=== PATIENT | male | born 1960 | race American Indian/Alaskan Native ===

== ENCOUNTER 2016-07-05 19:18 | Emergency (ER) | payer OTHER ==
[2016-07-05] MEDS ORDERED: Ketorolac 30 MG/ML SDV IVPUSH ONE (19:52)
[2016-07-05] MEDS: Sodium Chloride 0.9% 1,000 ML IV ONE ×2 (20:00→20:34)
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
[2016-07-05] MEDS ORDERED: Morphine 2 MG/ML Syringe IVPUSH ONE (20:29)
[2016-07-05] MEDS ORDERED: Ondansetron 4 MG/2 ML SDV IV ONE (20:29)
[2016-07-05] MEDS ORDERED: Sodium Chloride 0.9% 1,000 ML IV ONE ×2 (20:31)
[2016-07-05 20:47] LABS: CHLORIDE,CL 96 mmol/L (101-111); SODIUM,NA 131 mmol/L (135-145)
[2016-07-05] MEDS ORDERED: Acetaminophen 325 MG Tab PO ONE (21:07)
[2016-07-05 21:13] VITALS: BP 115/60
== END 2016-07-05 21:33 | disposition home or self-care (01) ==
LOC: DL.ED 19:18
DX: J11.1 Influenza due to unidentified influenza virus with other respiratory manifestations (principal); E03.9 Hypothyroidism, unspecified; I10 Essential (primary) hypertension; Z87.891 Personal history of nicotine dependence; Z88.5 Allergy status to narcotic agent; Z79.899 Other long term (current) drug therapy
CPT/HCPCS: 36415; 80053; 83605; 85025; 87040; 87081; 87430; 87804; 96374; 96375; 99284; A9270; J1885; J2270; J2405; J7030; 87077; 87186

== ENCOUNTER 2017-04-21 02:48 | Emergency (ER) | payer OTHER ==
[2017-04-21 03:29] VITALS: BP 164/82
[2017-04-21 03:33] LABS: CHLORIDE,CL 102 mmol/L (101-111); SODIUM,NA 138 mmol/L (135-145)
[2017-04-21] MEDS ORDERED: Iopamidol 612 MG/ML 100 ML Bottle IVPUSH ONE (03:43)
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
[2017-04-21] MEDS ORDERED: HYDROmorphone 1 MG/ML Syringe IVPUSH ONE (04:49)
[2017-04-21] MEDS ORDERED: Ondansetron 4 MG/2 ML SDV IV ONE (04:50)
== END 2017-04-21 05:10 ==
LOC: DL.ED 02:48
DX: K35.3 Acute appendicitis with localized peritonitis (principal); K81.0 Acute cholecystitis; F17.210 Nicotine dependence, cigarettes, uncomplicated; E03.9 Hypothyroidism, unspecified; Z79.899 Other long term (current) drug therapy; Z88.5 Allergy status to narcotic agent
CPT/HCPCS: 36415; 74177; 80053; 80305; 81001; 82150; 83690; 85025; 96374; 96375; 99285; J1170; J2405; Q9967

== ENCOUNTER 2017-04-28 04:38 | Inpatient (IN) | payer OTHER ==
[2017-04-28] MEDS ORDERED: Morphine 4 MG/ML Syringe IVPUSH ONE (05:05)
[2017-04-28] MEDS ORDERED: Ondansetron 4 MG/2 ML SDV IV ONE ×2 (05:05→05:52)
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
[2017-04-28] MEDS ORDERED: HYDROmorphone 1 MG/ML Syringe IVPUSH ONE (05:43)
[2017-04-28] MEDS ORDERED: Iopamidol 612 MG/ML 100 ML Bottle IVPUSH ONE (05:45)
[2017-04-28 05:49] LABS: ANION GAP 13.7; CHLORIDE,CL 95 mmol/L (101-111); SODIUM,NA 130 mmol/L (135-145)
[2017-04-28] MEDS ORDERED: ceFAZolin 1 GM in Premix Bag 1 BAG IV ONE (07:58)
[2017-04-28] MEDS: Sodium Chloride 0.9% 1,000 ML IV SCH ×2 (09:29→16:09)
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
[2017-04-28] MEDS ORDERED: Ondansetron 4 MG/2 ML SDV IV PRN (13:14)
--- NOTE | 2017-04-28 13:42 | OR ---
DATE: 04/28/2017 PREOPERATIVE DIAGNOSIS: Acute cholecystitis. POSTOPERATIVE DIAGNOSES: Acute cholecystitis with stones. PROCEDURE: Laparoscopic cholecystectomy. ANESTHESIA: General. ESTIMATED BLOOD LOSS: 100 mL. SPECIMEN: Gallbladder and stones. OPERATIVE FINDINGS: Markedly distended gallbladder that required drainage to be able to grasp it, moderately thick walled, and slight macronodular cirrhosis of the liver. Otherwise, no abnormalities. INDICATION FOR PROCEDURE: This is a 56-year-old male, presented to the emergency room with at least a week long history of right upper quadrant abdominal pain and postprandial vomiting no matter what he eats. CT scan shows a markedly dilated gallbladder with thick wall. PROCEDURE IN DETAIL: After adequate preparation, the trocars were placed at alternative sites secondary to his prior laparoscopic appendectomy last week. I was able to manipulate the trocars however in a good position to adequately do the cholecystectomy. The gallbladder was surrounded by omentum which required cautery excision to remove the omentum from the gallbladder. An opening in the top of the gallbladder was made and the suction device was used to suction out the bile within the gallbladder and this contained moderately thick black bile. The cystic triangle structures were identified as the gallbladder Jeffry's pouch was lifted off away from the liver. The gallbladder was taken off the liver about a quarter of the way up to the fundus, this definitely identified the cystic duct which was quite thick. Initially, I put clips on the duct and was going to transect it, however, the clips were barely across the cystic duct and with the amount of edema, I thought they possibly would come off, therefore, I took the clips often used the stapling device to transect the cystic duct and the artery that had been clipped prior. The gallbladder was then taken off the liver bed using blunt sharp and Bovie dissection. Hemostasis was controlled. The gallbladder was placed within a specimen retrieval bag and brought out through the epigastric trocar site. The right upper quadrant was cleared with saline and suctioned completely clear. No other intraabdominal abnormalities were noted. The trocars were removed, abdomen desufflated, and the skin closed with Vicryl. [facility] /[id number]
[2017-04-28] MEDS: fentaNYL 100 MCG/2 ML SDV IVPUSH ONE ×2 (14:22→14:32)
[2017-04-28] MEDS: Morphine 2 MG/ML Syringe IVPUSH PRN ×3 (15:34→23:21)
[2017-04-28] MEDS: Acetaminophen/oxyCODONE 325-5 MG Tab PO PRN ×2 (17:36→23:04)
[2017-04-28] MEDS: Sodium Chloride 0.9% 10 ML Syringe FLUSH PRN ×3 (23:21→23:30)
[2017-04-28] MEDS: Calcium Carbonate 500 MG Tab.Chew PO PRN (23:46)
[2017-04-29] MEDS: Acetaminophen/oxyCODONE 325-5 MG Tab PO PRN ×5 (03:08→20:58)
[2017-04-29] MEDS: Sodium Chloride 0.9% 10 ML Syringe FLUSH PRN ×3 (05:37→09:02)
[2017-04-29] MEDS: Morphine 2 MG/ML Syringe IVPUSH PRN ×4 (05:38→18:41)
[2017-04-29] MEDS: Levothyroxine 75 MCG Tab PO SCH (05:46)
--- NOTE | 2017-04-29 08:49 | PCM.SN ---
- Free Text/Narrative Note: VSS but has poor PO intake and pain not controlled unless IV morphine supplemented. Wounds OK. Abdomen distended. Will need to keep in observation today and see if ready to DC tomorrow.
[2017-04-29] MEDS ORDERED: Metoclopramide 10 MG/2 ML SDV IV ONE (09:19)
[2017-04-29] MEDS ORDERED: Rocuronium 50 MG/5 ML Vial IV ONE (09:19)
[2017-04-29] MEDS ORDERED: Ondansetron 4 MG/2 ML SDV IV ONE (09:19)
[2017-04-29] MEDS ORDERED: Glycopyrrolate 0.2 MG/ML 2 ML SDV IV ONE (09:19)
[2017-04-29] MEDS ORDERED: Neostigmine Methylsulfate 10 MG/10 ML MDV IV ONE (09:19)
[2017-04-29] MEDS ORDERED: Dexamethasone 4 MG/ML SDV IV ONE (09:19)
[2017-04-29] MEDS ORDERED: Propofol 200 MG/20 ML SDV IV ONE (09:19)
[2017-04-29] MEDS ORDERED: Ketorolac 30 MG/ML SDV IVPUSH ONE (09:19)
[2017-04-29] MEDS ORDERED: Midazolam 1 MG/ML 2 ML SDV IV ONE (09:19)
[2017-04-29] MEDS ORDERED: fentaNYL 100 MCG/2 ML SDV IV ONE (09:19)
[2017-04-29] MEDS ORDERED: Magnesium Hydroxide 400 MG/5 ML Susp 30 ML Cup PO ONE (19:40)
[2017-04-30] MEDS: Acetaminophen/oxyCODONE 325-5 MG Tab PO PRN ×3 (00:56→21:14)
[2017-04-30] MEDS: Levothyroxine 75 MCG Tab PO SCH (05:16)
--- NOTE | 2017-04-30 08:11 | PCM.SN ---
- Free Text/Narrative Note: Patient still C/O moderate abdominal pain radiating to right chest. No N&V, no bowel function. WBC last night was 10K with slightly low HgB. Abdomen not distended, wounds clean. Pain on palpation. States that he cannot eat anything without burning and pain. Will do EGD today and poss FU CT scan.
[2017-04-30] MEDS ORDERED: Midazolam 1 MG/ML 2 ML SDV ONE (08:15)
[2017-04-30] MEDS ORDERED: Benzocaine 20% Oral Spray 59.2 ML Canister ONE (08:37)
[2017-04-30] MEDS ORDERED: Midazolam 1 MG/ML 2 ML SDV IV ONE ×3 (08:38→16:25)
[2017-04-30] MEDS ORDERED: Benzocaine 20% Oral Spray 59.2 ML Canister MUCMEM ONE (08:39)
[2017-04-30] MEDS ORDERED: Dextrose 5%-0.45% NaCl 1,000 ML IV SCH (08:45)
--- NOTE | 2017-04-30 10:29 | OR ---
DATE: 04/30/2017 PREOPERATIVE DIAGNOSIS: Epigastric abdominal pain. POSTOPERATIVE DIAGNOSIS: Epigastric abdominal pain. PROCEDURE: EGD. ANESTHESIA: Conscious sedation with IV Versed. SPECIMEN: None. OPERATIVE FINDINGS: Small hiatal hernia and minimal gastritis, otherwise, negative for ulcer or stricture. INDICATION FOR PROCEDURE: This 56-year-old male is 3 days post laparoscopic cholecystectomy. He has pain on eating, it is reminiscent of possible ulcer disease or gastritis. PROCEDURE IN DETAIL: After adequate preparation, a gastroscope was inserted into the esophagus. This was passed down to the distal esophagus. He shows a small hiatal hernia of no consequence. A photograph of this was taken. The scope was advanced into the stomach. Both forward and retroflexed views were done and only show very minimal gastritis and patchy places, nothing significant, and no ulcerations. The scope was advanced through the pylorus and the first, second, and third part of the duodenal were all normal. Air was suctioned from the stomach and the scope was removed. [facility] /[id number]
[2017-04-30 10:33] LABS: ANION GAP 9.9; CHLORIDE,CL 97 mmol/L (101-111); SODIUM,NA 131 mmol/L (135-145)
--- NOTE | 2017-04-30 12:15 | PCM.SN ---
- Free Text/Narrative Note: CT scan shows collection of fluid around the liver and a second central collection. I think the bartolo-hepatic fluid is reactive and the central portion is hematoma. Could be bile or enterotomy leak but low chance. Fluid is leaking out of right sided trocar into the subq space and this is probably what the patient complains of most. Discussed the risks and benefits with the patient regarding my recommendation to re-operate for irrigation of this fluid. Will proceed to OR today.
[2017-04-30] MEDS: ceFAZolin 2 GM in Premix Bag 1 BAG IV SCH ×2 (13:11→21:15)
[2017-04-30] MEDS ORDERED: Morphine 2 MG/ML Syringe IVPUSH PRN (15:34)
[2017-04-30] MEDS ORDERED: fentaNYL 100 MCG/2 ML SDV IV ONE (16:25)
[2017-04-30] MEDS ORDERED: Neostigmine Methylsulfate 10 MG/10 ML MDV IV ONE (16:25)
[2017-04-30] MEDS ORDERED: Glycopyrrolate 0.2 MG/ML 2 ML SDV IV ONE (16:25)
[2017-04-30] MEDS ORDERED: Ondansetron 4 MG/2 ML SDV IV ONE (16:25)
[2017-04-30] MEDS ORDERED: Dexamethasone 4 MG/ML SDV IV ONE (16:25)
[2017-04-30] MEDS ORDERED: Lactated Ringers 1,000 ML IV ONE (16:25)
[2017-04-30] MEDS ORDERED: Rocuronium 50 MG/5 ML Vial IV ONE (16:25)
[2017-04-30] MEDS ORDERED: Propofol 200 MG/20 ML SDV IV ONE (16:25)
[2017-04-30] MEDS ORDERED: Ketorolac 30 MG/ML SDV IVPUSH ONE (16:25)
[2017-04-30] MEDS: Sodium Chloride 0.9% 10 ML Syringe FLUSH PRN (21:15)
[2017-04-30] MEDS: Calcium Carbonate 500 MG Tab.Chew PO PRN (21:26)
--- NOTE | 2017-04-30 23:51 | OR ---
DATE: 04/30/2017 PREOPERATIVE DIAGNOSIS: Intraabdominal hematoma, status post laparoscopic cholecystectomy. POSTOPERATIVE DIAGNOSIS: Intraabdominal hematoma, status post laparoscopic cholecystectomy. PROCEDURE: Diagnostic laparoscopy with evacuation of intraabdominal hemoperitoneum. ANESTHESIA: General. ESTIMATED BLOOD LOSS: None from the procedure. SPECIMEN: None but evacuation of fluid (900 mL, some of this is actual blood clot, the other is surrounding fluid and reactive fluid). INDICATION FOR PROCEDURE: This 56-year-old male had a laparoscopic cholecystectomy 3 days ago and had at that time acute gallbladder with marked edema. He has a very difficult cholecystectomy and postoperatively seemed to be doing well but staggered along. He had a CT scan finally that showed hemoperitoneum. PROCEDURE IN DETAIL: After adequate preparation, trocars were placed through the prior trocar sites. Examination of the abdomen did show some blood up around the liver correlating to what was seen on CAT scan. This fluid was suctioned clear. He did have some regular clot formation in the hepatic bed and down into Morison's pouch. This was all irrigated, I would estimate is 50% blood and 50% peritoneal fluid and reactive fluid. In any event, this was irrigated with 6 L of saline and suctioned clear. No other abdominal abnormalities were noted. The trocars were removed and the skin was closed with Vicryl. [facility] /[id number]
[2017-05-01] MEDS: Acetaminophen/oxyCODONE 325-5 MG Tab PO PRN ×2 (02:50→10:17)
[2017-05-01] MEDS: Levothyroxine 75 MCG Tab PO SCH (05:04)
[2017-05-01] MEDS: ceFAZolin 2 GM in Premix Bag 1 BAG IV SCH (05:05)
[2017-05-01] MEDS: Sodium Chloride 0.9% 10 ML Syringe FLUSH PRN (05:05)
[2017-05-01] MEDS: Calcium Carbonate 500 MG Tab.Chew PO PRN (05:05)
--- NOTE | 2017-05-01 08:10 | PCM.SN ---
- Free Text/Narrative Note: Feel better today. Much less pain and patient is more alert. Abdomen softer. Bruising on left side is secondary to the intra-abdominal bleeding seeping through the right sided trocar sites and collecting in the subq space. No treatment for this needed. Some PO last night without nausea. Not quite ready for discharge today but should be by tomorrow. Tentative discharge dictated and will have Dr. Mason observe for today. FU in my clinic week of May 31 if needed.
[2017-05-01 09:54] VITALS: BP 123/62
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
--- NOTE | 2017-05-03 07:44 | DISCH ---
ADDENDUM: INTRODUCTION: I had initially dictated a tentative discharge for Sharad Mcmahan with an admit of 04/28 and a discharge date of 05/02; however, this patient has decided he is ready for discharge today on the , and so the original discharge date should be 05/01 instead of tentative 05/02. [facility] /[id number]
== END 2017-05-01 10:30 | disposition home or self-care (01) | DRG 417 ==
LOC: DL.SDS 04:38 → DL.MS 13:10 → UNDOFXSDCSVC 04-29 09:18 → DL.SDS 04-29 09:18 → OBSVTOIN 04-30 15:32
PROVIDERS: ADMIT Surgery; ATTEND Surgery
PROC: 0FT44ZZ Resection of Gallbladder, Percutaneous Endoscopic Approach (ICD-10-PCS; principal; 2017-04-28)
PROC: 0DJ08ZZ Inspection of Upper Intestinal Tract, Via Natural or Artificial Opening Endoscopic (ICD-10-PCS; 2017-04-30)
PROC: 0F904ZZ Drainage of Liver, Percutaneous Endoscopic Approach (ICD-10-PCS; 2017-04-30)
DX: K80.00 Calculus of gallbladder with acute cholecystitis without obstruction (principal); K66.1 Hemoperitoneum; K29.70 Gastritis, unspecified, without bleeding; K44.9 Diaphragmatic hernia without obstruction or gangrene; E03.9 Hypothyroidism, unspecified; F17.210 Nicotine dependence, cigarettes, uncomplicated; H54.7 Unspecified visual loss; Z88.8 Allergy status to other drugs, medicaments and biological substances; Z79.899 Other long term (current) drug therapy
CPT/HCPCS: 36415; 74176; 74177; 80048; 80053; 82150; 83690; 85025; 96365; 96374; 96375; 96376; 99285; A9270-GY; G0378; J0690; J1100; J1170; J1885; J2250; J2270; J2405; J2704; J2710; J2765; J3010; J3490; J7030; J7050; J7120; Q9967

== ENCOUNTER 2017-05-03 18:20 | Emergency (ER) | payer OTHER ==
--- NOTE | 2017-05-03 19:01 | EDM.PDOC ---
ED HPI GENERAL MEDICAL PROBLEM - General Chief Complaint: Wound Recheck Stated Complaint: POST SURG, INCISION BLEEDING Time Seen by Provider: 05/03/17 18:57 Source of Information: Reports: Patient History Limitations: Reports: No Limitations - History of Present Illness INITIAL COMMENTS - FREE TEXT/NARRATIVE: states s/p abd surgery last then yesterday area turned [id number]-soci and painful, appetite denies N/V but c/o diarrhoea. Right Lower Abdomen Pain Score (Numeric/FACES): 6 - Related Data Allergies Allergy/AdvReac Type Severity Reaction Status Date / Time codeine Allergy Nausea Verified 05/03/17 18:30 Home Meds: Home Meds Acetaminophen 1,000 mg PO Q8H PRN 11/01/15 [History] Levothyroxine Sodium [Synthroid] 75 mcg PO DAILY 11/01/15 [History] Multivitamin [Multi-Day Vitamins] 1 tab PO DAILY 11/01/15 [History] oxyCODONE 5 mg PO Q8H PRN 04/28/17 [History] Past Medical History HEENT History: Reports: Impaired Vision Cardiovascular History: Reports: None Other Cardiovascular History: PATIENT DENIES HTN Respiratory History: Reports: None Gastrointestinal History: Reports: None Genitourinary History: Reports: None Musculoskeletal History: Reports: Fracture Other Musculoskeletal History: left arm Neurological History: Reports: None Psychiatric History: Reports: None Endocrine/Metabolic History: Reports: Hypothyroidism Hematologic History: Reports: None Immunologic History: Reports: None Oncologic (Cancer) History: Reports: Other (See Below) Other Oncologic History: THROAT Dermatologic History: Reports: Other (See Below) Other Dermatologic History: HX OF ABCESS TO BACK - Past Surgical History Head Surgeries/Procedures: Reports: Other (See Below) Respiratory Surgical History: Reports: None GI Surgical History: Reports: Appendectomy, Cholecystectomy, EGD Male Surgical History: Reports: None Endocrine Surgical History: Reports: None Neurological Surgical History: Reports: None Musculoskeletal Surgical History: Reports: Other (See Below) Other Musculoskeletal Surgeries/Procedures:: left arm surgery nigel in upper arm Oncologic Surgical History: Reports: Other (See Below) Social & Family History - Family History Family Medical History: Noncontributory - Tobacco Use Smoking Status *Q: Current Every Day Smoker Years of Tobacco use: 40 Packs/Tins Daily: 1 Used Tobacco, but Quit: No Month Tobacco Last Used: 03/2015 Second Hand Smoke Exposure: Yes - Caffeine Use Caffeine Use: Reports: Coffee - Recreational Drug Use Recreational Drug Use: No Drug Use in Last 12 Months: No ED ROS GENERAL - Review of Systems Review Of Systems: ROS reveals no pertinent complaints other than HPI. ED EXAM, SKIN/RASH Exam: See Below Exam Limited By: No Limitations General Appearance: Alert, WD/WN, Mild Distress, Other (discomfort) Ears: Hearing Grossly Normal Throat/Mouth: Normal Voice, No Airway Compromise Head: Atraumatic Neck: Non-Tender, Full Range of Motion Respiratory/Chest: No Respiratory Distress Cardiovascular: Regular Rate, Rhythm GI/Abdominal: Normal Bowel Sounds, Guarding, Tender, Other (tender over incision area with discolouration). No: Rigid, Rebound Neurological: Alert, Oriented, Normal Cognition, Normal Gait, No Motor/Sensory Deficits Psychiatric: Flat Affect Skin: Warm, Dry, Normal Color Location, Skin: Abdomen Associated features: Tenderness Lymphatic: No Adenopathy Course - Vital Signs Last Recorded V/S: Last Vital Signs Temp 36.8 C 05/03/17 20:35 Pulse 72 05/03/17 20:35 Resp 18 05/03/17 20:35 BP 122/71 05/03/17 20:35 Pulse Ox 98 05/03/17 20:35 - Orders/Labs/Meds Orders: Active Orders 24 hr Category Date Time Status CULTURE BLOOD [BC] Stat Lab 05/03/17 19:04 Received Labs: Laboratory Tests 05/03/17 05/03/17 05/03/17 Range/Units 19:04 19:04 19:04 WBC 8.5 (5.0-10.0) 10^3/uL RBC 3.44 L (4.6-6.2) 10^6/uL Hgb 11.0 L (14.0-18.0) g/dL Hct 31.9 L (40.0-54.0) % MCV 92.7 (80-100) fL MCH 32.0 (27.0-34.0) pg MCHC 34.5 (33.0-35.0) g/dL Plt Count 248 (150-450) 10^3/uL Neut % (Auto) 80.3 H (42.2-75.2) % Lymph % (Auto) 6.7 L (20.5-50.1) % [place] % (Auto) 9.7 H (2-8) % Eos % (Auto) 2.9 (1.0-3.0) % Baso % (Auto) 0.4 (0.0-1.0) % Sodium 129 L (135-145) mmol/L Potassium 3.9 (3.6-5.0) mmol/L Chloride 91 L (101-111) mmol/L Carbon Dioxide 31.0 (21.0-31.0) mmol/L Anion Gap 10.9 BUN 14 (7-18) mg/dL Creatinine 0.7 (0.6-1.3) mg/dL Est Cr Clr Drug Dosing 129.33 mL/min Estimated GFR (MDRD) > 60 BUN/Creatinine Ratio 20.00 Glucose 116 H (74-105) mg/dL Lactic Acid 0.8 (0.5-2.2) mmol/L Calcium 8.5 (8.4-10.2) mg/dl Total Bilirubin 3.7 H (0.2-1.0) mg/dL AST 36 (10-42) IU/L ALT 52 (10-60) IU/L Alkaline Phosphatase 135 H (42-121) IU/L Total Protein 6.2 L (6.7-8.2) g/dl Albumin 3.0 L (3.2-5.5) g/dl Globulin 3.2 Albumin/Globulin Ratio 0.94 Meds: Medications Discontinued Medications Generic Name Dose Route Start Last Admin Trade Name Freq PRN Reason Stop Dose Admin Sodium Chloride 1,000 mls @ 500 mls/hr 05/03/17 19:23 05/03/17 19:52 Normal Saline IV 05/03/17 21:22 500 mls/hr .BOLUS ONE Administration Iopamidol 100 ml 05/03/17 19:44 05/03/17 20:18 Isovue-300 (61%) IVPUSH 05/03/17 19:45 100 ml ONETIME ONE Administration - Re-Assessments/Exams Free Text/Narrative Re-Assessment/Exam: 05/03/17 21:[address] Do @ who kindly accepted pt. Departure - Departure Time of Disposition: 21:28 Disposition: DC/Tfer to Acute Hospital 02 Condition: Good Clinical Impression: Postoperative abdominal pain - Discharge Information Forms: Interfacility Transfer EMTALA - My Orders Last 24 Hours: My Active Orders 05/03/17 19:04 CULTURE BLOOD [BC] Stat - Assessment/Plan Last 24 Hours: My Active Orders 05/03/17 19:04 CULTURE BLOOD [BC] Stat
[2017-05-03] MEDS ORDERED: Sodium Chloride 0.9% 1,000 ML IV ONE (19:23)
[2017-05-03 19:31] LABS: CHLORIDE,CL 91 mmol/L (101-111); SODIUM,NA 129 mmol/L (135-145)
[2017-05-03] MEDS ORDERED: Iopamidol 612 MG/ML 100 ML Bottle IVPUSH ONE (19:44)
[2017-05-03 21:35] VITALS: BP 109/66
== END 2017-05-03 21:48 ==
LOC: DL.ED 18:20
DX: G89.18 Other acute postprocedural pain (principal); R10.31 Right lower quadrant pain; E03.9 Hypothyroidism, unspecified; F17.210 Nicotine dependence, cigarettes, uncomplicated; Z79.899 Other long term (current) drug therapy; Z88.5 Allergy status to narcotic agent; Z90.49 Acquired absence of other specified parts of digestive tract
CPT/HCPCS: 36415; 74177; 80053; 83605; 85025; 87040; 96360; 96361; 99285; J7030; Q9967

== ENCOUNTER → 2021-02-07 | Day surgery (SDC) | payer OTHER ==
[~2021-02-07] MED LIST: Dextrose 5%-0.45% NaCl 1,000 ML IV SCH; Midazolam 1 MG/ML 2 ML SDV IV ONE; Midazolam 1 MG/ML 2 ML SDV ONE; fentaNYL 100 MCG/2 ML SDV IV ONE; fentaNYL 100 MCG/2 ML SDV ONE
--- NOTE | 2021-02-07 10:39 | OR ---
DATE: 02/07/2021 PROCEDURE: Total colonoscopy and cold snare polypectomy. INSTRUMENT USED: PCF-H190DL Olympus video colonoscope. PREMEDICATIONS: Fentanyl 125 mcg intravenous, Versed 4 mg intravenous. Nasal O2 cannula. The procedure was done under pulse oximetry, BP recording, and heat treat technician. INDICATIONS: Screening colonoscopic examination is done for detection of any polypoid lesions and removal, endoscopic hemostasis therapy if needed. DESCRIPTION OF PROCEDURE: Initial rectal exam was unremarkable. Rigid anoscopy was normal. The colonoscope was passed with ease. In the distal descending colon, diminutive benign-appearing polyp was noted, photograph was taken, and cold snare polypectomy was done. The tissue was retrieved and sent for histopathology. Scope was passed with ease up to the ileocecal area. Photographs were taken of the normal-appearing cecum, identified by landmarks of appendiceal orifice and double-bulged ileocecal folds. No bleeding was noted from any of the visualized areas at the commencement of the examination. The bowel preparation was found to be adequate, Bode scale 2 in right and transverse colon, 3 in left colon, total score of 7. No stricture, no vascular ectasia. No large isolated ulcerations seen. No evidence of diffuse inflammatory bowel disease in the form of friability, contact bleeding, or ulcerations. Probing the proximal sides of folds and flexures using adequate distention and clearing up the stool material, withdrawal of the scope was made. Cecum to rectum time over 6 minutes. No bleeding was noted from any of the visualized areas at the completion of examination. IMPRESSION: Diminutive descending colon polyp. The patient tolerated the procedure well. [facility] /[id number]
--- NOTE | 2021-02-07 11:45 | LETTER ---
02/07/2021 Alpesh Bajwa MD [address] [address] RE: CARMELA MCMAHAN : [address] Bajwa: Mr. Carmela Mcmahan had colonoscopic examination done this morning, and he tolerated the procedure well. I herewith send a copy of the endoscopy note and photographs for your review. Thank you. Sincerely, [facility] /[id number]
[2021-02-07 12:49] VITALS: BP 143/69; PULSE 53
== END ==
LOC: DL.ENDO 07:28
PROVIDERS: ATTEND Internal Medicine Gastroenterology
DX: Z12.11 Encounter for screening for malignant neoplasm of colon (principal); D12.2 Benign neoplasm of ascending colon; F17.210 Nicotine dependence, cigarettes, uncomplicated; E03.9 Hypothyroidism, unspecified; Z88.5 Allergy status to narcotic agent; Z90.49 Acquired absence of other specified parts of digestive tract; Z98.890 Other specified postprocedural states; G89.4 Chronic pain syndrome; Z01.812 Encounter for preprocedural laboratory examination; Z20.822 Contact with and (suspected) exposure to COVID-19
CPT/HCPCS: 45385; 87635; J2250; J3010; J7042; U0002

== ENCOUNTER 2024-01-23 15:56 | Emergency (ER) | payer BC, OTHER ==
[2024-01-23] MEDS ORDERED: Naloxone 2 MG/2 ML Syringe IVPUSH PRN (15:58)
[2024-01-23] MEDS: fentaNYL 100 MCG/2 ML SDV IVPUSH ONE ×2 (16:00→16:36)
[2024-01-23 16:05] LABS: BASOPHILS PERCENT AUTO 0.1 % (0.0-1.0); EOSINOPHILS PERCENT AUTO 1.4 % (1.0-3.0); HEMATOCRIT 42.4 % (40.0-54.0); HEMOGLOBIN 14.3 g/dL (14.0-18.0); LYMPHOCYTES PERCENT AUTO 18.4 % (20.5-50.1); MEAN CORPUSCULAR HEMOGLOBIN 31.4 pg (27.0-34.0); MEAN CORPUSCULAR HGB CONC 33.7 g/dL (33.0-35.0); MEAN CORPUSCULAR VOLUME 93.2 fL (80-100); MONOCYTES PERCENT AUTO 7.7 % (2-8); NEUTROPHILS PERCENT AUTO 72.4 % (42.2-75.2); PLATELET COUNT,PLT 183 10^3/uL (150-450); RED BLOOD CELL COUNT 4.55 10^6/uL (4.6-6.2)
[2024-01-23 16:20] LABS: A/G RATIO 1.2; ALANINE AMINOTRANSFERASE,ALT 31 U/L (16-63); ALBUMIN 3.8 g/dL (3.4-5.0); ALKALINE PHOSPHATASE 105 U/L (46-116); ANION GAP 12.6 mEq/L (7-13); ASPARTATE AMNIOTRANSFERASE,AST 32 U/L (15-37); BILIRUBIN TOTAL 0.9 mg/dL (0.2-1.0); BLOOD UREA NITROGEN,BUN 15 mg/dL (7-18); BUN/CREATININE RATIO 12.2 (No establ ref range); CALCIUM 8.6 mg/dL (8.5-10.1); CARBON DIOXIDE,CO2 29 mmol/L (21-32); CHLORIDE,CL 103 mmol/L (98-107); CREATININE 1.23 mg/dL (0.70-1.30); GLUCOSE RANDOM 119 mg/dL (70-99); POTASSIUM,K 3.6 mmol/L (3.5-5.1); PROTEIN TOTAL,TP 7.1 g/dL (6.4-8.2); SODIUM,NA 141 mmol/L (136-145)
[2024-01-23 16:25] LABS: ESTIMATED GFR 66 mL/min (>=60)
[2024-01-23] MEDS: fentaNYL 100 MCG/2 ML SDV ONE (16:31)
[2024-01-23] MEDS: Iopamidol 612 MG/ML 100 ML Bottle IVPUSH ONE (17:14)
[2024-01-23] MEDS: Acetaminophen/HYDROcodone 325-5 MG Tab PO ONE (17:26)
== END 2024-01-23 18:15 ==
LOC: DL.ED 15:56
DX: M54.6 Pain in thoracic spine (principal); M54.2 Cervicalgia; R07.81 Pleurodynia; W11.XXXA Fall on and from ladder, initial encounter
CPT/HCPCS: 36415; 70450; 71045; 71260; 72125; 72128; 72131; 74177; 80053; 84484; 85025; 96374; 96376; 99282; 99284-25; A9270-GY; J3010; Q9967